=== PATIENT | female | born 1950 | race Caucasian/White ===

== ENCOUNTER → 2022-07-09 | Outpatient (CLI) | payer MEDICARE, BC | LOC: M RAD 15:48 | PROVIDERS: ATTEND Orthopaedic Surgery | DX: M17.12 Unilateral primary osteoarthritis, left knee (principal) ==

== ENCOUNTER 2024-06-05 12:42 | Inpatient (IN) | payer MEDICARE, BC ==
[~2024-06-05] VITALS: Ht 152.4 cm; Wt 106.8 kg
[2024-06-05 13:27] LABS: BASO % 0.2 % (0.0-1.0); EOS % 0.1 % (0.0-3.0); HEMATOCRIT 38.4 % (36.0-47.0); HEMOGLOBIN 12.3 g/dl (12.0-15.5); LYMPH # 0.6 10^3/uL (1.5-5.0); LYMPH % 3.9 % (24.0-44.0); MEAN CORPUSCULAR HEMOGLOBIN 28.6 pg (27.0-33.0); MEAN CORPUSCULAR VOLUME 89.3 fl (80.0-96.0); MONO # 0.9 10^3/uL (0.0-0.8); NEUTROPHILS % 89.3 % (36.0-66.0); PLATELET COUNT, AUTOMATED 425 10^3/uL (150-450); WHITE BLOOD COUNT 14.5 10^3/uL (4.0-10.0)
[2024-06-05 13:54] LABS: LIPASE 22 U/L (12-53)
[2024-06-05 13:56] LABS: ALBUMIN 2.6 G/DL (3.2-5.2); ALKALINE PHOSPHATASE 130 U/L (46-116); ALT/SGPT < 9 U/L (7.0-40); AST/SGOT < 8 U/L (<34); BILIRUBIN,DIRECT 0.4 MG/DL (<0.4); BILIRUBIN,TOTAL 1.7 MG/DL (0.3-1.2); TOTAL PROTEIN 7.3 G/DL (5.7-8.2)
[2024-06-05] MEDS ORDERED: ISOVUE-370 76% 100ML VIAL As Ordered ONE (14:18)
[2024-06-05] MEDS: POTASSIUM CHLORIDE 10MEQ SR TABLET PO ONE (14:27)
[2024-06-05] MEDS: NS 1,000 ML IV ONE (14:27)
[2024-06-05] MEDS: PIPERACILLIN/TAZOBACTAM SOD 3.375 GM in D5W MINI-BAG PLUS 50 ML IV ONE (15:21)
[2024-06-05] MEDS ORDERED: CEPH500C PO (16:29)
[2024-06-05] MEDS ORDERED: SM N0.65 NARES (16:29)
[2024-06-05] MEDS ORDERED: MELO7.5T35 PO (16:29)
[2024-06-05] MEDS ORDERED: PRES1CHW PO (16:29)
[2024-06-05] MEDS ORDERED: ACET650T61 PO (16:29)
[2024-06-05] MEDS ORDERED: POTA-151 PO (16:29)
[2024-06-05] MEDS ORDERED: LISI10TA24 PO (16:29)
[2024-06-05] MEDS ORDERED: AZEL1SPR3 NARES (16:29)
[2024-06-05] MEDS ORDERED: CALC600C3 PO (16:29)
[2024-06-05] MEDS ORDERED: METR-265 PO (16:29)
[2024-06-05] MEDS ORDERED: PROBCAP14 PO (16:29)
[2024-06-05] MEDS ORDERED: ATOR1TAB21 PO (16:29)
[2024-06-05] MEDS ORDERED: VITA100054 PO (16:29)
[2024-06-05] MEDS ORDERED: HOME MED LIST COMPLETE! XX SCH (16:30)
[2024-06-05] MEDS: NS 1,000 ML IV SCH (17:04)
[2024-06-05] MEDS ORDERED: ONDANSETRON 4MG 2ML VIAL IV PRN (17:25)
[2024-06-05] MEDS: ATORVASTATIN 20 MG TAB PO SCH (17:33)
[2024-06-05] MEDS: PIPERACILLIN/TAZOBACTAM SOD 3.375 GM in D5W MINI-BAG PLUS 50 ML IV SCH (21:23)
[2024-06-05] MEDS: HEPARIN SOD (PORCINE) 5000UNITS/ML 1ML VIAL/SYRINGE SC SCH (21:44)
[2024-06-06] MEDS: ACETAMINOPHEN TAB 650MG DOSE (2X325MG) PO ONE (01:44)
[2024-06-06 06:16] LABS: BASO % 0.3 % (0.0-1.0); EOS # 0.1 10^3/uL (0.0-0.5); EOS % 1.5 % (0.0-3.0); HEMATOCRIT 32.4 % (36.0-47.0); LYMPH # 1.3 10^3/uL (1.5-5.0); LYMPH % 14.8 % (24.0-44.0); MEAN CORPUSCULAR HEMOGLOBIN 28.7 pg (27.0-33.0); MEAN CORPUSCULAR HGB CONC 31.5 g/dl (32.0-36.5); MEAN CORPUSCULAR VOLUME 91.3 fl (80.0-96.0); MONO # 1.1 10^3/uL (0.0-0.8); MONO % 12.8 % (2.0-8.0); NEUTROPHILS % 70.1 % (36.0-66.0); PLATELET COUNT, AUTOMATED 343 10^3/uL (150-450); RED BLOOD COUNT 3.55 10^6/uL (4.00-5.40); WHITE BLOOD COUNT 8.6 10^3/uL (4.0-10.0)
[2024-06-06 06:17] LABS: HEMOGLOBIN 10.2 g/dl (12.0-15.5)
[2024-06-06 06:44] LABS: ALKALINE PHOSPHATASE 96 U/L (46-116); ALT/SGPT < 9 U/L (7.0-40); AST/SGOT < 8 U/L (<34); BILIRUBIN,TOTAL 1.4 MG/DL (0.3-1.2); BLOOD UREA NITROGEN 8 MG/DL (9-23); CALCIUM LEVEL 7.7 MG/DL (8.3-10.6); CARBON DIOXIDE LEVEL 28 MMOL/L (20-31); CHLORIDE LEVEL 107 MMOL/L (98-107); CREATININE FOR GFR 0.54 MG/DL (0.55-1.30); GLOMERULAR FILTRATION RATE > 60.0 (>39); GLUCOSE, FASTING 134 MG/DL (74-106); POTASSIUM SERUM 3.2 MMOL/L (3.5-5.1); SODIUM LEVEL 139 MMOL/L (136-145); TOTAL PROTEIN 5.7 G/DL (5.7-8.2)
[2024-06-06] MEDS: POTASSIUM CHLORIDE 10MEQ SR TABLET PO SCH (08:24)
[2024-06-06 13:15] VITALS: BP 107/70; TEMP 98.1; O2SAT 95
[2024-06-06] MEDS: NYSTATIN 100,000 UNITS/GM TOPICAL PWD 15GM TOP PRN (16:16)
[2024-06-06 20:09] VITALS: BP 123/60; TEMP 98.2; O2SAT 92
[2024-06-07 04:00] VITALS: BP 112/55; TEMP 97.7; O2SAT 93
[2024-06-07 06:21] LABS: BASO % 0.4 % (0.0-1.0); EOS # 0.1 10^3/uL (0.0-0.5); EOS % 1.1 % (0.0-3.0); HEMATOCRIT 33.2 % (36.0-47.0); HEMOGLOBIN 10.3 g/dl (12.0-15.5); LYMPH # 1.1 10^3/uL (1.5-5.0); LYMPH % 11.4 % (24.0-44.0); MEAN CORPUSCULAR HEMOGLOBIN 28.3 pg (27.0-33.0); MEAN CORPUSCULAR VOLUME 91.2 fl (80.0-96.0); MONO % 10.7 % (2.0-8.0); NEUTROPHILS # 7.4 10^3/uL (1.5-8.5); NEUTROPHILS % 75.9 % (36.0-66.0); PLATELET COUNT, AUTOMATED 368 10^3/uL (150-450); RED BLOOD COUNT 3.64 10^6/uL (4.00-5.40); WHITE BLOOD COUNT 9.7 10^3/uL (4.0-10.0)
[2024-06-07 06:46] LABS: ALBUMIN 1.9 G/DL (3.2-5.2); ALKALINE PHOSPHATASE 98 U/L (46-116); ALT/SGPT < 9 U/L (7.0-40); AST/SGOT < 8 U/L (<34); BILIRUBIN,TOTAL 1.1 MG/DL (0.3-1.2); BLOOD UREA NITROGEN 7 MG/DL (9-23); CALCIUM LEVEL 7.9 MG/DL (8.3-10.6); CARBON DIOXIDE LEVEL 26 MMOL/L (20-31); CHLORIDE LEVEL 108 MMOL/L (98-107); CREATININE FOR GFR 0.56 MG/DL (0.55-1.30); GLOMERULAR FILTRATION RATE > 60.0 (>39); GLUCOSE, FASTING 130 MG/DL (74-106); POTASSIUM SERUM 3.7 MMOL/L (3.5-5.1); SODIUM LEVEL 139 MMOL/L (136-145); TOTAL PROTEIN 5.7 G/DL (5.7-8.2)
[2024-06-07] MEDS ORDERED: PREPARATION H OINTMENT (HEMORRHOID) PR PRN (10:55)
[2024-06-07] MEDS ORDERED: LIDOCAINE 1% MDV 20ML VIAL As Ordered ONE (11:27)
[2024-06-07 13:34] VITALS: BP 123/71; TEMP 97.9; O2SAT 96
[2024-06-07] MEDS: ACETAMINOPHEN 325 MG TAB PO PRN (14:59)
[2024-06-07 21:23] VITALS: BP 130/70; TEMP 97.5; O2SAT 95
[2024-06-08 04:00] VITALS: BP 129/70; TEMP 98.1; O2SAT 94
[2024-06-08 06:28] LABS: BASO % 0.5 % (0.0-1.0); EOS # 0.1 10^3/uL (0.0-0.5); EOS % 1.5 % (0.0-3.0); HEMATOCRIT 33.6 % (36.0-47.0); HEMOGLOBIN 10.5 g/dl (12.0-15.5); LYMPH % 13.2 % (24.0-44.0); MEAN CORPUSCULAR HEMOGLOBIN 28.2 pg (27.0-33.0); MEAN CORPUSCULAR HGB CONC 31.3 g/dl (32.0-36.5); MEAN CORPUSCULAR VOLUME 90.1 fl (80.0-96.0); MONO # 0.7 10^3/uL (0.0-0.8); NEUTROPHILS # 5.7 10^3/uL (1.5-8.5); NEUTROPHILS % 75.4 % (36.0-66.0); PLATELET COUNT, AUTOMATED 367 10^3/uL (150-450); RED BLOOD COUNT 3.73 10^6/uL (4.00-5.40); WHITE BLOOD COUNT 7.6 10^3/uL (4.0-10.0)
[2024-06-08 06:56] LABS: ALKALINE PHOSPHATASE 97 U/L (46-116); ALT/SGPT < 9 U/L (7.0-40); AST/SGOT 10 U/L (<34); BILIRUBIN,TOTAL 1.1 MG/DL (0.3-1.2); BLOOD UREA NITROGEN < 5 MG/DL (9-23); CALCIUM LEVEL 8.6 MG/DL (8.3-10.6); CARBON DIOXIDE LEVEL 28 MMOL/L (20-31); CHLORIDE LEVEL 106 MMOL/L (98-107); CREATININE FOR GFR 0.54 MG/DL (0.55-1.30); GLOMERULAR FILTRATION RATE > 60.0 (>39); GLUCOSE, FASTING 129 MG/DL (74-106); POTASSIUM SERUM 3.4 MMOL/L (3.5-5.1); SODIUM LEVEL 141 MMOL/L (136-145); TOTAL PROTEIN 5.9 G/DL (5.7-8.2)
[2024-06-08 08:11] LABS: MAGNESIUM LEVEL 1.7 MG/DL (1.8-2.4)
[2024-06-08] MEDS: POTASSIUM CHLORIDE 10% LIQ 20MEQ/15ML UDC PO ONE (08:44)
[2024-06-08 08:45] VITALS: BP 153/81
[2024-06-08] MEDS: MAG SULF 1GM/100ML (MAG RUN) 1 GM in IV 1 EA IV ONE (10:21)
[2024-06-08 12:00] VITALS: BP 120/58; TEMP 96.8; O2SAT 95
[2024-06-08] MEDS ORDERED: AMOX875T2 PO (15:27)
[2024-06-08] MEDS ORDERED: MOXI1TAB PO (15:43)
== END 2024-06-08 15:38 | disposition home or self-care (01) | DRG 391 ==
LOC: M ED 12:42 → M ED INP 16:34 → M MS5PR 06-06 12:55
PROVIDERS: ADMIT Student in an Organized Health Care Education/Training Program; ATTEND Internal Medicine
PROC: 0W9G30Z Drainage of Peritoneal Cavity with Drainage Device, Percutaneous Approach (ICD-10-PCS; principal; 2024-06-07 15:30)
DX: K57.20 Diverticulitis of large intestine with perforation and abscess without bleeding (principal); K65.1 Peritoneal abscess; I10 Essential (primary) hypertension; E78.5 Hyperlipidemia, unspecified; Z96.642 Presence of left artificial hip joint; Z88.0 Allergy status to penicillin; Z88.8 Allergy status to other drugs, medicaments and biological substances; Z79.899 Other long term (current) drug therapy

== ENCOUNTER 2024-09-15 08:14 | Day surgery (SDC) | payer MEDICARE, BC ==
[~2024-09-15] VITALS: Ht 152.4 cm; Wt 99.8 kg
[~2024-09-15 08:14] MED LIST: ACET650T61 PO; AMOX875T2 PO; ATOR1TAB21 PO; AZEL1SPR3 NARES; CALC600C3 PO; CEPH500C PO; LISI10TA24 PO; MELO7.5T35 PO; METR-265 PO; MOXI1TAB PO; POTA-151 PO; PRES1CHW PO; PROBCAP14 PO; SM N0.65 NARES; VITA100054 PO
[2024-09-15] MEDS ORDERED: LIDOCAINE 2% 100MG/5ML SDV (FOR ANES.) As Ordered ONE (09:42)
[2024-09-15] MEDS ORDERED: propofoL 200 MG/20 ML VIAL As Ordered ONE (09:42)
[2024-09-15 09:55] VITALS: TEMP 97.8
[2024-09-15 10:25] VITALS: BP 155/71; O2SAT 94
== END 2024-09-15 11:13 | disposition home or self-care (01) ==
LOC: M OPP 08:14
PROVIDERS: ATTEND Surgery
DX: K57.32 Diverticulitis of large intestine without perforation or abscess without bleeding (principal); K63.89 Other specified diseases of intestine; K57.30 Diverticulosis of large intestine without perforation or abscess without bleeding

== ENCOUNTER → 2025-04-06 | Outpatient (CLI) | payer MEDICARE, BC ==
[~2025-04-06] MED LIST changes: +ACET32TAB PO; +CHOL25CA2 PO; +CIPR-249 PO; +CIPR250T3 PO; +CLOT10TR11 PO; +COLA100C5 PO; +FLOR250C PO; +FLUC-1 PO; +GASTROGRAFIN SOLUTION 30 ML As Ordered ONE; +ISOVUE-370 76% 100 ML VIAL As Ordered ONE; +META28.32 PO; +PROB250C PO; +REGL5TAB2 PO; +SENN18TA PO; +SIME80CH6 PO; -VITA100054 PO
== END ==
LOC: M RAD 10:28
PROVIDERS: ATTEND Surgery
DX: K57.20 Diverticulitis of large intestine with perforation and abscess without bleeding (principal)
CPT/HCPCS: 74177; Q9963; Q9967

== ENCOUNTER → 2025-04-11 | Outpatient (CLI) | payer MEDICARE, BC ==
[~2025-04-11] MED LIST changes: -GASTROGRAFIN SOLUTION 30 ML As Ordered ONE; -ISOVUE-370 76% 100 ML VIAL As Ordered ONE
[2025-04-11 14:15] VITALS: TEMP 97.9
[2025-04-11] MEDS: SODIUM CHLORIDE 0.9% 1000 ML XX SCH (14:15)
[2025-04-11 16:00] VITALS: BP 125/59; O2SAT 98
[2025-04-11] MEDS: ISOVUE-300 61% 100 ML VIAL IV SCH (16:21)
[2025-04-11] MEDS: LIDOCAINE 1% MDV 20 ML VIAL SC SCH (16:21)
== END ==
LOC: M IRPRO 14:03
PROVIDERS: ATTEND Surgery
DX: K57.20 Diverticulitis of large intestine with perforation and abscess without bleeding (principal); K68.19 Other retroperitoneal abscess
CPT/HCPCS: 10060; 49424; 87070; 87075; 87076; 87077; 87184; 87205; C1729; Q9967

== ENCOUNTER → 2025-05-02 | Outpatient (CLI) | payer MEDICARE, BC ==
[~2025-05-02] MED LIST changes: +ISOVUE-370 76% 100 ML VIAL As Ordered ONE
== END ==
LOC: M RAD 14:24
PROVIDERS: ATTEND Surgery
DX: K57.90 Diverticulosis of intestine, part unspecified, without perforation or abscess without bleeding (principal)
CPT/HCPCS: 74177; Q9967

== ENCOUNTER → 2025-05-17 | Outpatient (CLI) | payer MEDICARE, BC | LOC: M RAD 13:11 | PROVIDERS: ATTEND Surgery | DX: K57.20 Diverticulitis of large intestine with perforation and abscess without bleeding (principal) | CPT/HCPCS: 74177; 82565; Q9967 ==

== ENCOUNTER → 2025-05-20 | Outpatient (CLI) | payer MEDICARE, BC ==
[~2025-05-20] MED LIST changes: -ISOVUE-370 76% 100 ML VIAL As Ordered ONE; +ONDANSETRON 4MG 2ML VIAL IV PRN; +SODIUM CHLORIDE 0.9% 1000 ML XX SCH
[2025-05-20 08:39] VITALS: TEMP 98.4
[2025-05-20] MEDS: MIDAZOLAM INJ 2 MG/2 ML VIAL IV PRN (10:26)
[2025-05-20] MEDS: LIDOCAINE 1% MDV 20 ML VIAL SC SCH (10:26)
[2025-05-20] MEDS: NS (Normal Saline) 0.9% 1,000 ML IV SCH (10:27)
[2025-05-20] MEDS: ISOVUE-300 61% 100 ML VIAL IV SCH (10:27)
[2025-05-20 11:00] VITALS: BP 122/60; O2SAT 96
== END ==
LOC: M IRPRO 08:28
PROVIDERS: ATTEND Surgery
DX: K63.0 Abscess of intestine (principal)
CPT/HCPCS: 49405; 87070; 87075; 87077; 87186; 87205; 99152; 99153; J2250; J3010

== ENCOUNTER → 2025-05-24 | Outpatient (CLI) | payer MEDICARE, BC ==
[~2025-05-24] MED LIST changes: -ONDANSETRON 4MG 2ML VIAL IV PRN; -SODIUM CHLORIDE 0.9% 1000 ML XX SCH
[2025-05-24 11:50] VITALS: TEMP 98.7
[2025-05-24] MEDS: ISOVUE-300 61% 100 ML VIAL IV SCH (12:00)
[2025-05-24] MEDS: LIDOCAINE 1% MDV 20 ML VIAL SC SCH (12:34)
[2025-05-24 12:40] VITALS: BP 112/63; O2SAT 96
== END ==
LOC: M IRPRO 11:33 → EEVIPCON 11:33
PROVIDERS: ATTEND Radiology Diagnostic Radiology
DX: K63.0 Abscess of intestine (principal)
CPT/HCPCS: 49423; 75984; C1729; Q9967

== ENCOUNTER → 2025-06-06 | Outpatient (CLI) | payer MEDICARE, BC ==
[~2025-06-06] MED LIST changes: +MIDAZOLAM INJ 2 MG/2 ML VIAL IV PRN; +NS (Normal Saline) 0.9% 1,000 ML IV SCH; +SODIUM CHLORIDE 0.9% 1000 ML XX SCH
[2025-06-06 14:10] VITALS: TEMP 97.2
[2025-06-06] MEDS: LIDOCAINE 1% MDV 20 ML VIAL SC SCH (16:06)
[2025-06-06] MEDS: ISOVUE-300 61% 100 ML VIAL IV SCH (16:06)
[2025-06-06 16:10] VITALS: BP 120/56; O2SAT 97
== END ==
LOC: M IRPRO 13:25
PROVIDERS: ATTEND Radiology Diagnostic Radiology
DX: K63.0 Abscess of intestine (principal)
CPT/HCPCS: 49424; 76080; G0463; Q9967

== ENCOUNTER → 2025-07-01 | Outpatient (CLI) | payer MEDICARE, BC ==
[~2025-07-01] MED LIST changes: +ACET1TAB55 PO; +DOCU100C16 PO; +LEVO1TAB40 PO; +LINE1TAB6 PO; -MIDAZOLAM INJ 2 MG/2 ML VIAL IV PRN; -NS (Normal Saline) 0.9% 1,000 ML IV SCH; +NYST0.1C TOP; +SENN8.6T58 PO; -SODIUM CHLORIDE 0.9% 1000 ML XX SCH
[2025-07-01 14:40] VITALS: TEMP 97.8
[2025-07-01] MEDS: ISOVUE-300 61% 100 ML VIAL IV STA (15:09)
[2025-07-01] MEDS: LIDOCAINE 1% MDV 20 ML VIAL SC ONE (15:09)
[2025-07-01 15:15] VITALS: BP 111/54; O2SAT 99
== END ==
LOC: M IRPRO 13:31
PROVIDERS: ATTEND Radiology Diagnostic Radiology
DX: K63.0 Abscess of intestine (principal); K63.2 Fistula of intestine

== ENCOUNTER 2025-07-04 05:53 | Inpatient (IN) | payer MEDICARE, BC ==
[~2025-07-04] VITALS: Ht 152.4 cm; Wt 89.4 kg
[~2025-07-04 05:53] MED LIST changes: -ACET1TAB55 PO
[2025-07-04] MEDS ORDERED: LR 1,000 ML IV SCH (06:20)
[2025-07-04] MEDS: LIDOCAINE 1% SDV 30 ML VIAL As Ordered ONE (07:10)
[2025-07-04] MEDS ORDERED: LIDOCAINE 2% 100 MG/5 ML SDV (FOR ANES.) As Ordered ONE (07:11)
[2025-07-04] MEDS ORDERED: ROCURONIUM BROMIDE 50MG/5ML VIAL As Ordered ONE (07:11)
[2025-07-04] MEDS ORDERED: MIDAZOLAM INJ 2 MG/2 ML VIAL As Ordered ONE (07:12)
[2025-07-04] MEDS ORDERED: ACET1TAB55 PO (07:19)
[2025-07-04] MEDS ORDERED: HOME MED LIST COMPLETE! XX SCH (07:25)
[2025-07-04] MEDS: MEROPENEM 1 GM in IV 1 EA IV ONE (07:39)
[2025-07-04] MEDS: INDOCYANINE GREEN 25 MG VIAL As Ordered ONE (08:08)
[2025-07-04] MEDS ORDERED: dexAMETHasone 4 MG/ML 1 ML VIAL As Ordered ONE (09:05)
[2025-07-04] MEDS ORDERED: HYDROmorphone HCL 2 MG/ML 1 ML VIAL As Ordered ONE (09:06)
[2025-07-04] MEDS ORDERED: PHENYLephrine 500MCG 5ML (100MCG/ML) SYRINGE As Ordered ONE (09:08)
[2025-07-04] MEDS ORDERED: SUGAMMADEX SODIUM 200 MG/2 ML VIAL As Ordered ONE (10:23)
[2025-07-04] MEDS ORDERED: ONDANSETRON 4MG/2ML VIAL As Ordered ONE (10:23)
[2025-07-04] MEDS ORDERED: ACETAMINOPHEN 1000MG/100ML IV BAG As Ordered ONE (10:23)
[2025-07-04] MEDS: METHYLENE BLUE 0.5% (5 MG/ML) 10 ML AMP As Ordered ONE (10:43)
[2025-07-04] MEDS ORDERED: PHENYLEPHRINE 10MG/ML 1ML VIAL As Ordered ONE (12:50)
[2025-07-04] MEDS ORDERED: FUROSEMIDE 100 MG/10 ML VIAL As Ordered ONE (15:15)
[2025-07-04] MEDS ORDERED: MEPERIDINE 25 MG/ML 1 ML VIAL IV PRN (15:55)
[2025-07-04] MEDS: INSULIN LISPRO (NovoLOG) PER UNIT SC PRN (16:38)
[2025-07-04] MEDS: HYDROMORPHONE HCL 0.5 MG/0.5 ML SYRINGE IV PRN (16:38)
[2025-07-04] MEDS: ONDANSETRON 4MG/2ML VIAL IV PRN (16:39)
[2025-07-04] MEDS ORDERED: PERCOCET 5MG/325MG TAB PO PRN (16:50)
[2025-07-04] MEDS ORDERED: ONDANSETRON 4MG/2ML VIAL IV PRN (16:50)
[2025-07-04] MEDS ORDERED: MORPHINE 4 MG/ML 1 ML VIAL IV PRN (16:50)
[2025-07-04 17:20] VITALS: BP 99/54; TEMP 97.7; O2SAT 90
[2025-07-04] MEDS: LR 1,000 ML IV SCH ×2 (17:25→17:34)
[2025-07-04 17:45] VITALS: BP 92/48; TEMP 98.1; O2SAT 94
[2025-07-04] MEDS: MEROPENEM 1 GM in IV 1 EA IV SCH (18:01)
[2025-07-04 18:15] VITALS: BP 105/67; TEMP 97.3; O2SAT 95
[2025-07-04 19:00] VITALS: BP 112/69; TEMP 97.9; O2SAT 92
[2025-07-04] MEDS: KETOROLAC 30 MG/ML 1 ML VIAL IV SCH (20:11)
[2025-07-04 20:15] VITALS: BP 123/66; TEMP 98.3; O2SAT 92
[2025-07-04] MEDS: ALVIMOPAN 12 MG CAPSULE PO ONE (20:52)
[2025-07-04] MEDS: CelecoXIB 400 MG CAP PO ONE (20:52)
[2025-07-04 21:15] VITALS: BP 101/56; TEMP 97.9; O2SAT 93
[2025-07-05 02:00] VITALS: BP 110/64; TEMP 97.7; O2SAT 92
[2025-07-05 06:00] VITALS: BP 119/63; TEMP 98.1; O2SAT 96
[2025-07-05 06:37] LABS: BASO # 0.0 10^3/uL (0.0-0.2); BASO % 0.1 % (0.0-1.0); EOS # 0.0 10^3/uL (0.0-0.5); EOS % 0.1 % (0.0-3.0); LYMPH # 1.3 10^3/uL (1.5-5.0); LYMPH % 14.4 % (24.0-44.0); MONO # 1.2 10^3/uL (0.0-0.8); MONO % 13.4 % (2.0-8.0); NEUTROPHILS # 6.2 10^3/uL (1.5-8.5); NEUTROPHILS % 71.8 % (36.0-66.0); PLATELET COUNT, AUTOMATED 248 10^3/uL (150-450)
[2025-07-05 07:11] LABS: C REACTIVE PROTEIN QUANTITATIV 7.14 MG/DL (<1.0); CALCIUM LEVEL 8.3 MG/DL (8.3-10.6); CARBON DIOXIDE LEVEL 29 MMOL/L (20-31); CHLORIDE LEVEL 103 MMOL/L (98-107); CREATININE FOR GFR 0.63 MG/DL (0.55-1.30); GLOMERULAR FILTRATION RATE > 90.0 (>39); POTASSIUM SERUM 3.6 MMOL/L (3.5-5.1); SODIUM LEVEL 142 MMOL/L (136-145)
[2025-07-05 08:00] VITALS: BP 112/51; TEMP 98.1; O2SAT 93
[2025-07-05] MEDS: PANTOPRAZOLE 40MG VIAL IV SCH (08:22)
[2025-07-05] MEDS: ENOXAPARIN 40 MG/0.4 ML SYRINGE (J1650 PER 10MG) SC SCH (08:22)
[2025-07-05] MEDS: ATORVASTATIN 20 MG TAB PO SCH (08:22)
[2025-07-05] MEDS: ACETAMINOPHEN 325 MG TAB PO PRN (09:01)
[2025-07-05 12:00] VITALS: BP 110/58; TEMP 98.1; O2SAT 94
[2025-07-05 20:12] VITALS: BP 100/56; TEMP 98.1; O2SAT 94
[2025-07-06 00:40] VITALS: BP 130/67; TEMP 98.8; O2SAT 95
[2025-07-06 04:16] VITALS: BP 108/58; TEMP 98.2; O2SAT 94
[2025-07-06 05:56] LABS: BASO # 0.0 10^3/uL (0.0-0.2); BASO % 0.5 % (0.0-1.0); EOS # 0.2 10^3/uL (0.0-0.5); EOS % 1.9 % (0.0-3.0); LYMPH # 0.9 10^3/uL (1.5-5.0); LYMPH % 10.2 % (24.0-44.0); MONO # 1.0 10^3/uL (0.0-0.8); MONO % 11.3 % (2.0-8.0); NEUTROPHILS # 6.4 10^3/uL (1.5-8.5); NEUTROPHILS % 75.7 % (36.0-66.0); PLATELET COUNT, AUTOMATED 262 10^3/uL (150-450)
[2025-07-06 06:25] LABS: C REACTIVE PROTEIN QUANTITATIV 8.81 MG/DL (<1.0); CALCIUM LEVEL 7.7 MG/DL (8.3-10.6); CARBON DIOXIDE LEVEL 30 MMOL/L (20-31); CHLORIDE LEVEL 105 MMOL/L (98-107); CREATININE FOR GFR 0.65 MG/DL (0.55-1.30); GLOMERULAR FILTRATION RATE > 90.0 (>39); POTASSIUM SERUM 3.6 MMOL/L (3.5-5.1); SODIUM LEVEL 143 MMOL/L (136-145)
[2025-07-06 08:36] VITALS: BP 138/76
[2025-07-06] MEDS: METAMUCIL PACKET PO SCH (10:27)
[2025-07-06 12:00] VITALS: BP 145/76; TEMP 98.6; O2SAT 95
[2025-07-06 19:43] VITALS: BP 117/60; TEMP 98.1; O2SAT 95
[2025-07-07 03:44] VITALS: BP 139/68; TEMP 98.4; O2SAT 94
[2025-07-07 06:36] LABS: BASO # 0.0 10^3/uL (0.0-0.2); BASO % 0.4 % (0.0-1.0); EOS # 0.3 10^3/uL (0.0-0.5); EOS % 4.3 % (0.0-3.0); LYMPH # 0.9 10^3/uL (1.5-5.0); LYMPH % 11.7 % (24.0-44.0); MONO # 0.8 10^3/uL (0.0-0.8); MONO % 9.8 % (2.0-8.0); NEUTROPHILS # 5.8 10^3/uL (1.5-8.5); NEUTROPHILS % 73.2 % (36.0-66.0); PLATELET COUNT, AUTOMATED 298 10^3/uL (150-450)
[2025-07-07 07:06] LABS: C REACTIVE PROTEIN QUANTITATIV 7.19 MG/DL (<1.0); CALCIUM LEVEL 7.9 MG/DL (8.3-10.6); CARBON DIOXIDE LEVEL 28 MMOL/L (20-31); CHLORIDE LEVEL 107 MMOL/L (98-107); CREATININE FOR GFR 0.59 MG/DL (0.55-1.30); GLOMERULAR FILTRATION RATE > 90.0 (>39); POTASSIUM SERUM 3.6 MMOL/L (3.5-5.1); SODIUM LEVEL 144 MMOL/L (136-145)
[2025-07-07 08:15] VITALS: BP 158/93
[2025-07-07 12:00] VITALS: BP 121/95; TEMP 98.2; O2SAT 96
[2025-07-07] MEDS: MAALOX 30 ML SUSP *UDC PO SCH (13:29)
[2025-07-07 20:04] VITALS: BP 139/74; TEMP 98.4; O2SAT 97
[2025-07-07] MEDS ORDERED: LINEZOLID 600 MG TABLET PO SCH (21:00)
[2025-07-07] MEDS: PERCOCET 5MG/325MG TAB PO PRN (22:00)
[2025-07-08 03:24] VITALS: BP 133/75; TEMP 98.6; O2SAT 96
[2025-07-08 08:41] VITALS: BP 125/60
[2025-07-08 12:00] VITALS: BP 124/78; TEMP 98.6; O2SAT 96
[2025-07-08] MEDS ORDERED: METR-265 PO (12:49)
[2025-07-08] MEDS ORDERED: SIME125T16 PO (12:49)
[2025-07-08] MEDS ORDERED: LEVO75TAB PO (12:49)
[2025-07-08] MEDS ORDERED: PERCOCET PO (12:49)
== END 2025-07-08 15:59 | disposition home health service (06) | DRG 330 ==
LOC: M OR 05:53 → M MSPAV 17:14
PROVIDERS: ADMIT Surgery; ATTEND Surgery
PROC: BW11ZZZ Fluoroscopy of Abdomen and Pelvis (ICD-10-PCS; 2025-07-01)
PROC: 8E0W4CZ Robotic Assisted Procedure of Trunk Region, Percutaneous Endoscopic Approach (ICD-10-PCS; 2025-07-04)
PROC: 0DTN4ZZ Resection of Sigmoid Colon, Percutaneous Endoscopic Approach (ICD-10-PCS; principal; 2025-07-04 07:30)
PROC: 0D1B4Z4 Bypass Ileum to Cutaneous, Percutaneous Endoscopic Approach (ICD-10-PCS; 2025-07-04 07:30)
DX: K63.2 Fistula of intestine (principal); K57.20 Diverticulitis of large intestine with perforation and abscess without bleeding; I10 Essential (primary) hypertension; E78.5 Hyperlipidemia, unspecified; H91.93 Unspecified hearing loss, bilateral; Z96.642 Presence of left artificial hip joint; Z96.653 Presence of artificial knee joint, bilateral; Z79.899 Other long term (current) drug therapy; Z88.0 Allergy status to penicillin; Z88.8 Allergy status to other drugs, medicaments and biological substances; Z93.3 Colostomy status

== ENCOUNTER → 2025-07-21 | Outpatient (REF) | payer MEDICARE, BC ==
[~2025-07-21] MED LIST changes: +ACET1TAB55 PO; +LEVO75TAB PO; +PERCOCET PO; +SIME125T16 PO
== END ==
LOC: M SFHCPLAZ 12:57
PROVIDERS: ATTEND Internal Medicine Infectious Disease
DX: R19.7 Diarrhea, unspecified (principal)